=== PATIENT | female | born 1950 | race Caucasian/White ===

== ENCOUNTER 2017-05-25 10:16 | Day surgery (SDC) | payer BC, OTHER ==
[2017-05-22 13:45] LABS: Absolute Lymphocytes (CBC) 2.1 K/uL (0.7-4.9); Absolute Monocytes 0.5 K/uL (0.1-1.3); Absolute Neutrophil 5.1 K/uL (1.8-8.0); Basophils % 0.4 % (0-1.3); Eosinophils % 1.3 % (0-4.4); Hematocrit 37.6 % (36.0-45.0); Lymphocytes % 26.5 % (15.3-44.8); MCH 30.2 pg (27.0-35.0); MPV 9.1 fL (7.6-11.3); RBC Red Blood Cell Count 4.23 M/uL (3.86-4.86)
[2017-05-22 13:48] LABS: Protime INR 0.96
[2017-05-22 13:59] LABS: Urine Appearance CLEAR; Urine Bilirubin NEGATIVE (NEG); Urine Blood NEGATIVE (NEG); Urine Color YELLOW; Urine Glucose NEGATIVE (NEG); Urine Microscopic Reflex NO UMIC; Urine Protein NEGATIVE (NEG); Urine Specific Gravity 1.015 (1.005-1.030); Urine Urobilinogen 0.2 mg/dL (0.2-1.0); Urine pH 7.5 (5.0-7.0)
[2017-05-22 14:16] LABS: BUN Blood Urea Nitrogen 10 mg/dL (6-20); Bicarbonate 31 mEq/L (21-31); Glucose Level 88 mg/dL (65-120); Potassium 4.1 mEq/L (3.6-5.0); Sodium Level 136 mEq/L (135-145)
[2017-05-25] MEDS ORDERED: PHENAZOPYRIDINE 100MG TAB PO ONE (10:30)
[2017-05-25] MEDS ORDERED: Ringers Lactate 1,000 ML IV ONE ×2 (10:46→14:14)
[2017-05-25] MEDS ORDERED: CEFAZOLIN/SWI 1gm 1 GM/10 ML SYR ONE ×2 (10:46→11:38)
[2017-05-25] MEDS ORDERED: NA CHLORIDE 0.9% 100 ML IV ONE (11:38)
[2017-05-25] MEDS ORDERED: VASOPRESSIN 20 UNIT/ML VIAL ONE (11:38)
[2017-05-25] MEDS ORDERED: ROCURONIUM 50 MG/5 ML VIAL IV ONE ×2 (12:10→14:45)
[2017-05-25] MEDS ORDERED: ONDANSETRON 4 MG/2 ML VIAL ONE (12:10)
[2017-05-25] MEDS ORDERED: PROPOFOL 200 MG/20 ML VIAL IV ONE (12:10)
[2017-05-25] MEDS ORDERED: MIDAZOLAM HCL 2 MG/2 ML INJ ONE (12:10)
[2017-05-25] MEDS ORDERED: LIDOCAINE 2% MPF 5 ML VIAL ONE (12:10)
[2017-05-25] MEDS ORDERED: FENTANYL CITR 250 MCG/5 ML ONE (12:10)
[2017-05-25] MEDS ORDERED: DEXAMETHASONE 10 MG/ML VIAL ONE (12:55)
[2017-05-25] MEDS ORDERED: GLYCOPYRROLATE 0.2 MG/ML SYR ONE (15:22)
[2017-05-25] MEDS ORDERED: NEOSTIGMINE 1 MG/ML -5 ML SYRINGE ONE (15:22)
[2017-05-25] MEDS ORDERED: Morphine 2 MG/2 ML SYR IV PRN (15:37)
[2017-05-25] MEDS ORDERED: ACETAMINOPHEN 500 MG TAB PO PRN (15:37)
[2017-05-25] MEDS ORDERED: PROMETHAZINE 25 MG/ML VIAL IV PRN (15:37)
[2017-05-25] MEDS ORDERED: ONDANSETRON 4 MG/2 ML VIAL IV PRN (15:37)
--- NOTE | 2017-05-25 15:47 | P.BOP ---
Preoperative diagnosis: cystocele,vault prolapse,rectocele, CANDELARIA Postoperative diagnosis: cystocele,vault prolapse,rectocele, CANDELARIA Primary procedure: cystocele repair with uphold, apical enterocele repair, trupti SSLF colpopexy Secondary procedure: rectocele repair and perineorrhaphy Other procedure(s): TVT-O cystoscopy [employer] Driver: Alfreda Arcos Estimated blood loss: 150 Specimen: none Findings: 0/+2/+2/3/thin/6/-2/-2/n/a Anesthesia: General Complications: None Drain(s): Urinary catheter Implants: uphold, TVT-O Transferred to: Recovery Room Condition: Good
[2017-05-25] MEDS ORDERED: Ringers Lactate 1,000 ML IV SCH (16:00)
[2017-05-25] MEDS ORDERED: ALBUTEROL INHALER 60 PUFF/8 GM IH PRN (17:15)
[2017-05-25] MEDS ORDERED: cloNIDine HCl 0.1 MG TAB PO SCH (17:30)
[2017-05-25] MEDS ORDERED: HYDROCODONE/APAP 5/325 MG TAB PO PRN ×2 (21:12→21:13)
[2017-05-26] MEDS ORDERED: LEVOTHYROXINE SOD 0.05 MG TABLET PO SCH (06:00)
[2017-05-26] MEDS ORDERED: LOSARTAN POTASSIUM 50 MG TABLET PO SCH (06:00)
[2017-05-26] MEDS ORDERED: HOME MED 1 EA UNK (Losartan Potassium [Cozaar] 100 MG) PO SCH (06:00)
[2017-05-26 06:32] LABS: Absolute Monocytes 0.9 K/uL (0.1-1.3); Absolute Neutrophil 7.7 K/uL (1.8-8.0); Basophils % 0.4 % (0-1.3); Eosinophils % 0.2 % (0-4.4); Hematocrit 33.1 % (36.0-45.0); Lymphocytes % 18.4 % (15.3-44.8); MCH 29.5 pg (27.0-35.0); MCV 89.8 fL (80-100); MPV 9.1 fL (7.6-11.3); Monocytes % 8.4 % (3.3-12.3); RBC Red Blood Cell Count 3.68 M/uL (3.86-4.86)
[2017-05-26] MEDS ORDERED: HOME MED 1 EA UNK (Fluticasone/Salmeterol [Advair 250/50 Diskus*] 1 PUFF) IH SCH (09:00)
[2017-05-26] MEDS ORDERED: MONTELUKAST 10 MG TAB PO SCH (09:00)
--- NOTE | 2017-05-26 17:15 | OP ---
Date of Procedure: 05/25/2017 Surgeon: Carmenza Dykes MD Director Of Teaching And Learning: Alfreda Arcos. Preoperative Diagnoses: Vaginal vault prolapse, cystocele, rectocele, stress incontinence, possible posterior enterocele and apical perineal defect and possible rectocele. 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 2.Apical enterocele. 3.Anterior wall defect (cystocele). 4.Distal rectocele. 5.Perineocele. 6.Stress urinary incontinence. Anesthesia: General endotracheal. Specimens: No specimens. Complications: No complications. Drains: Espinoza catheter. Vaginal packing. Condition: The patient's condition is stable. Ebl: 200. Indications: The patient is a 67-year-old with a prior history of anterior wall repair in 2001, recu rrent prolapse that is symptomatic, declined pessary management. After discussing alternatives of ab dominal and vaginal surgeries, proceeded with consenting for vaginal surgery, involving the defect re pairs as follows. Description Of Procedure: After informed consent was verified, 1 g of Ancef was given. The patient was taken back to the OR. SCDs were placed after she was placed in a supine fashion on the operating table. General anesthesia was given. The patient placed in a dorsal lithotomy position. Pelvic ex am was performed and POP-Q as follows 0, +2, +2, genital hiatus 4 cm. Perineal body was think and to chichi vaginal length 5 cm. AP -2 BP -2. Point D not applicable. Lower abdomen, vulva, vagina, and pe rineum were prepped and draped in a sterile fashion. Espinoza was placed to drain the bladder and retra cted superiorly. She got Pyridium preop. The vaginal vault was marked with two 3-0 Vicryl sutures. The anterior wall appeared to be stratifie d because of the chronic external exposure likely. The midline was held with 2 Allis clamps right be low the level of the bladder neck to the level just above the vaginal apex, and there was a suspicion of an apical enterocele and anterior enterocele. So, I plan to do this defect repair along with the cystocele repair. Dilute vasopressin 20 units mixed with 50 cc of normal saline, 20 cc was injected here in the anterio r wall into the vesicovaginal space based on the depth of the needle. After this was injected, 1 cm incision was made in the middle with a scalpel 15-blade. Incision extended after entering the approp riate plane superiorly and inferiorly. Then, the dissection was carried to separate the bladder supe riorly from the flaps and then the enterocele was very evident here, and at the apex the enterocele w as also dissected and completely taken down, slightly even past the level of the vaginal cuff because it extended both in the anterior posterior compartments from the apex. The lateral cantu were also dissected and once the paravaginal sulcus was reached, the paravesical space was entered with the tip s of the scissors and open space, and the space opened up. Dissection was carried towards the ischia l spines and sacrospinous ligament was cleaned up on the right and same dissection performed on the l eft. A 3-0 Vicryl suture was taken and apical enterocele was closed down with the help of 2 pursestr ing sutures. In the vesicovaginal space reduction of this was done as well with the help of 1 purses tring 3-0 Vicryl suture. Once this was all reduced down, the length of the anterior wall for short a bout 3.5 cm from the bladder neck to the apex. The scissors went slightly past the apex in the disse ction to the enterocele repair 5 cm of the graft would fit, so I pulled this opened. The arms were p laced into the sacrospinous ligament about 2 cm medial and posterior to the ischial spine on each cheryle e without any problems. Then the graft was attached in the midline and on both sides at the proximal end with the help of 2-0 PDS sutures in interrupted fashion x3. Then, the graft was slightly adjust ed to come down at the apex so the loose graft was flattened out. Then, the vaginal closure was star kali at the apex. Two sutures were placed to bring the lateral tissues together on top of the apex, a pical part of the mesh. Then, the vaginal epithelium was closed with the help of a 2-0 Vicryl suture in a horizontal mattress fashion, about 1 cm was closed. Then this was set aside. The distal part of the graft was secured under the bladder neck, very close to it with the help of 3-0 PDS sutures an d 3-0 Monocryl sutures x3, 1 in the center, 2 on each side to lay completely flat. Once this was don e, there was no excess graft here that was loose, so the graft was tensioned appropriately without cr eating a tense band. The rest of the incision was closed with the help of an Allis clamp and left in its place, so that there is no displacement since it was going to be repaired in the posterior richard rtment. The arms were also left in place after being tensioned fully, then went down posteriorly. Dilute vasopressin was injected in the perineum in the perineocele area and in the posterior wall, mi dline. There was a dense scar in the lowest 1 cm of the posterior wall most likely from prior repair . On rectovaginal exam, there was 1 area that was really adherent to the wall of the bowel. After t his area was noted, a triangular skin incision was made on the perineum. Skin removed. The posterio r compartment entered. This was dissected and the perineocele was evident below the level of the hym en. The wall here was very thin. This defect appeared to be proximal to the level of the sphincter. The rectocele was dissected in the lowest portion. Then, once I went past the scar here, I was abl e to get the lateral cantu dissected, and they were pulled together with a simple 2-0 Vicryl stitch x 2 with the finger in the rectum and the vagina. The transversus perinei were brought together with t hree 2-0 Vicryl sutures. All these were held on clamps as the glove was changed, they were all tied down. There was excellent reconstruction of the perineum. There was no trimming of the vaginal epit helium and the posterior wall once the defect was repaired. The defect was fully closed with the hel p of a running 3-0 Vicryl suture. Then on the perineum, it was taken down in a subcutaneous fashion and then brought up subcuticular fashion and tied at the level of the hymen. Rectal exam was performed. No evidence of any injury or foreign body. Midurethral sling was placed after making a 1 cm midline incision on the midurethra after injecting d ilute vasopressin. Dissection carried at 45-degree angle to the vertical and horizontal planes towar ds the ipsilateral shoulder under the inferior pubic ramus. The tracks were created on both sides. The TVT-O was opened. The wing guide was placed. The spikes passed in the usual fashion, exited at the points marked for exit on both sides without any problems, sling tension sleeves pulled. Tension was done with the Millie under the sling and in between the urethra. The incision was closed with the help of 3-0 Vicryl in a continuous running locked fashion. Espinoza removed. Cystoscopy was performed strong jets of urine from both the ureteral orifices was seen. No evidence of any trauma or foreign body to the bladder. The area above the trigone had a slight mound likely from the reduction of the enterocele and also because of placing the stitch in the vesicovaginal space to reduce the bulge, wh ich resolved. The entire bladder was fully examined. Urethra was examined as well on the way up. B ladder drained. Espinoza catheter was replaced, packing placed. Skin incision was closed with Dermabon d. Instrument, needle, and sponge counts x3 were correct at the end of the case. The patient tolera kali the procedure while she was recovered from anesthesia and taken to PACU in stable condition. SOY/EDSON Voice ID: [id number] Report ID: [id number]
== END 2017-05-26 10:20 | disposition home or self-care (01) ==
LOC: OR 10:16 → 2ND-WC 16:19 → OR 05-26 10:20
PROVIDERS: ATTEND Obstetrics & Gynecology
PROC: 0JUC0JZ Supplement of Pelvic Region Subcutaneous Tissue and Fascia with Synthetic Substitute, Open Approach (ICD-10-PCS; 2017-05-25)
PROC: 0JQC0ZZ Repair Pelvic Region Subcutaneous Tissue and Fascia, Open Approach (ICD-10-PCS; 2017-05-25)
PROC: 0WQNXZZ Repair Female Perineum, External Approach (ICD-10-PCS; 2017-05-25)
PROC: 0USG7ZZ Reposition Vagina, Via Natural or Artificial Opening (ICD-10-PCS; 2017-05-25)
PROC: 0TSD0ZZ Reposition Urethra, Open Approach (ICD-10-PCS; 2017-05-25)
PROC: 0UQF0ZZ Repair Cul-de-sac, Open Approach (ICD-10-PCS; principal; 2017-05-25 11:30)
DX: N99.3 Prolapse of vaginal vault after hysterectomy (principal); N39.3 Stress incontinence (female) (male); I10 Essential (primary) hypertension; J45.40 Moderate persistent asthma, uncomplicated; E03.9 Hypothyroidism, unspecified; M06.9 Rheumatoid arthritis, unspecified; M85.80 Other specified disorders of bone density and structure, unspecified site; Z90.49 Acquired absence of other specified parts of digestive tract; Z80.8 Family history of malignant neoplasm of other organs or systems; Z82.49 Family history of ischemic heart disease and other diseases of the circulatory system
CPT/HCPCS: 36415; 80048; 81003; 85025; 85610; 85730; 86850; 86900; 86901; J0690; J1100; J2250; J2405; J2710

== ENCOUNTER 2022-04-05 08:37 | Observation (INO) | payer OTHER ==
[2022-04-05 09:16] LABS: Absolute Lymphocytes (CBC) 0.8 K/uL (0.7-4.9); Hematocrit 26.2 % (36.0-45.0); MCV 89.4 fL (80-100); MPV 7.3 fL (7.6-11.3); RBC Red Blood Cell Count 2.93 M/uL (3.86-4.86)
[2022-04-05 09:20] LABS: Protime INR 1.04
--- OUTSIDE RECORDS SUMMARY | 2022-04-05 09:39 | XMS REPORT | Continuity of Care Document ---
:1950 Author Organization [facility] t Address [address] [place] [address] [place] [id number] Care Team Providers Name Role Phone PAPA BUCKLEY Primary Care Physician Unavailable Eduardo Handy MD Attending Clinician EDUARDO HANDY Attending Clinician Unavailable Doctor Unassigned, [place] Attending Clinician Unavailable EDUARDO HANDY Admitting Clinician Unavailable Eduardo Handy MD Admitting Clinician Payers Payer Name Policy Type Policy Number Effective Date Expiration Date S ource Problems Condition Condition Condition Status Onset Resolution Last Treating Co mments Source Name Details Category Date Date Treatment Clinician Date Acute Acute Disease Active 2017-02 Univers bacterial bacterial 03-06 ity of bronchitis bronchitis 00:00: [place] [facility] UTI due to UTI due to Disease Active 2017-02 U johanna Klebsiella Klebsiella 03-06 it y of species species 00:00: [address] SIRS SIRS Disease Active 2017-02 Univers (systemic (systemic 1-27 [place] inflammato inflammato [place] Medical response response Branch syndrome) syndrome) Hypothyroi Hypothyroi Disease Active 2014-02 U johanna d d 2-30 ity of 00:00: [address] Essential Essential Disease Active 2014-02 Uni vers hypertensi hypertensi 0-05 it y of on on 00:00: [address] Allergic Allergic Disease Active 2014-02 Unive rs rhinitis rhinitis 0-05 ity of due to due to 00:00: [place] pollen pollen 00 Medical Branch 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 0-05 it y of asthma asthma 00:00: [place] without without 00 Medical complicati complicati Br anch on on Allergies, Adverse Reactions, Alerts Allergy Allergy Status Severity Reaction(s) Onset Inactive Treating Comm ents Source Name Type Date Date Clinician Codeine Propensi Active Nausea 2014-02 Univers ty to and/or 0-05 ity of adverse Vomiting 00:00: [place] reaction 00 Medical s to Branch drug CODEINE DRUG Active N/V 2014-02 Univers INGREDI 0-05 ity of 00:00: [place] 00 [facility] Branch Social History Social Habit Start Date Stop Date Quantity Comments Source Exposure to 2021-05-21 2021-05-31 Not sure [facility] SARS-CoV-2 (event) 00:00:00 11:06:00 [facility] Alcohol intake 2021-05-31 2021-05-31 .14 /d [facility] 00:00:00 00:00:00 [facility] Tobacco use and 2014-11-10 2014-11-10 Never used [facility] exposure 00:00:00 00:00:00 [facility] Sex [birth year] [facility] 00:00:00 00:00:00 [facility] Smoking Status Start Date Stop Date Source Never smoker [facility] Medications Ordered Filled Start Stop Current Ordering Indication Dosage Frequency Signature Comments Components Source Medication Medication Date Date Medication? Clinician (SIG) Name Name water for Yes PRN, Univers irrigation 06-02 Starting ity o f irrigation 18:50: on Wed [place] solution 00 06/02/21 at Medic al 1350, Branch Until Discontinu ed, Routine, Intra-op simethicone Yes PRN, Univer s (GAS RELIEF 06-02 Starting ity of (SIMETHICON 18:50: on Mon [place] E)) 40 00 06/02/21 at Medical mg/0.6 mL 1350, Branch drops Until Discontinu ed, Routine, Intra-op water for 2021- No PRN, Univers irrigation 06-02 Starting ity of irrigation 18:50: 22:17 on Wed [place] solution 00 :33 06/02/21 at Medic al 1350, Branch Until Mon06/02/21 at 1717, Routine, Intra-op simethicone 2021- No PRN, [facility] rs (GAS RELIEF 06-02 Starting ity of (SIMETHICON 18:50: 22:17 on Mon Luis as E)) 40 00 :33 06/02/21 at Medical mg/0.6 mL 1350, Branch drops Until Mon06/02/21 at 1717, Routine, Intra-op lactated 2021- No 1000mL at 42 [facility] rs ringers IV 06-02-27 mL/hr, ity of infusion 18:00: 18:23 1,000 mL, Luis as 1,000 mL 00 :00 IV Medical Infusion, Branch ONCE, 1 dose, On Mon06/02/21 at 1300, Routine, DSU Pre-op lactated 2021- No 1000mL at 42 [facility] ringers IV 06-02- mL/hr, ity of infusion 18:00: 18:23 1,000 mL, Luis as 1,000 mL 00 :00 IV Medical Infusion, Branch ONCE, 1 dose, On Mon06/02/21 at 1300, Routine, DSU Pre-op Fluticasone Yes 1{puff} Inhale 1 Univers -Salmeterol 4-27 Puff every it y of (ADVAIR 15:17: 12 [place] DISKUS) 30 (twelve) Medical 100-50 hours. Branch mcg/dose inhalation disk Fluticasone Yes 1{puff} Inhale 1 Univers -Salmeterol 4-27 Puff every it y of (WIXELA 15:17: 12 [place] INHUB) 30 (twelve) Medical 100-50 hours. Branch mcg/dose inhalation disk Ferrous Yes 1{tbl} Take 1 Univer s Fumarate 4-27 tablet by ity of (FERROCITE) 15:17: mouth [place] 324 mg (106 30 daily. Medica l mg iron) Branch Tab Fluticasone Yes 1{puff} Inhale 1 Univers -Salmeterol 4-27 Puff every it y of (ADVAIR 15:17: 12 [place] DISKUS) 30 (twelve) Medical 100-50 hours. Branch mcg/dose inhalation disk Fluticasone Yes 1{puff} Inhale 1 Univers -Salmeterol 4-27 Puff every it y of (WIXELA 15:17: 12 [place] INHUB) 30 (twelve) Medical 100-50 hours. Branch mcg/dose inhalation disk Ferrous Yes 1{tbl} Take 1 Univer s Fumarate 4-27 tablet by ity of (FERROCITE) 15:17: mouth [place] 324 mg (106 30 daily. Medica l mg iron) Branch Tab Fluticasone Yes 1{puff} Inhale 1 Univers -Salmeterol 4-27 Puff every it y of (ADVAIR 15:17: 12 [place] DISKUS) 30 (twelve) Medical 100-50 hours. Branch mcg/dose inhalation disk Fluticasone Yes 1{puff} Inhale 1 Univers -Salmeterol 4-27 Puff every it y of (WIXELA 15:17: 12 [place] INHUB) 30 (twelve) Medical 100-50 hours. Branch mcg/dose inhalation disk Ferrous Yes 1{tbl} Take 1 Univer s Fumarate 4-27 tablet by ity of (FERROCITE) 15:17: mouth [place] 324 mg (106 30 daily. Medica l mg iron) Branch Tab Fluticasone 0 Yes 1{puff} Inhale 1 Univers -Salmeterol 7-03 Puff every it y of (ADVAIR 13:08: 12 [place] DISKUS) 25 (twelve) Medical 100-50 hours. Branch mcg/dose inhalation disk albuterol-i 2017-02 Yes 1{puff} Inhale 1 Univers pratropium 1-29 Puff 4 ity of 20-100 00:00: (four) [place] mcg/actuati 00 times Medical on inhaler daily. Branch albuterol-i 2017-02 Yes 1{puff} Inhale 1 Univers pratropium 1-29 Puff 4 ity of 20-100 00:00: (four) [place] mcg/actuati 00 times Medical on inhaler daily. Branch albuterol-i 2017-02 Yes 1{puff} Inhale 1 Univers pratropium 1-29 Puff 4 ity of 20-100 00:00: (four) [place] mcg/actuati 00 times Medical on inhaler daily. Branch albuterol-i 2017- Yes 1{puff} Inhale 1 Univers pratropium 1-29 Puff 4 ity of 20-100 00:00: (four) [place] mcg/actuati 00 times Medical on inhaler daily. Branch benzonatate Yes [id number] 100mg Take 1 Univers (TESSALON 9-10 capsule by ity of PERLES) 100 00:00: mouth 3 [place] as mg capsule 00 (three) Medica l times Branch daily. benzonatate Yes [id number] 100mg Take 1 Univers (TESSALON 9-10 capsule by ity of PERLCloudacc) 100 00:00: mouth 3 [place] as mg capsule 00 (three) Medica l times Branch daily. benzonatate Yes [id number] 100mg Take 1 Univers (TESSALON 9-10 capsule by ity of PERLCloudacc) 100 00:00: mouth 3 [place] as mg capsule 00 (three) Medica l times Branch daily. benzonatate Yes [id number] 100mg Take 1 Univers (TESSALON 9-10 capsule by ity of PERLCloudacc) 100 00:00: mouth 3 [place] as mg capsule 00 (three) Medica l times Branch daily. albuterol Yes [id number] 2{puff} Inhale 2 Univers 90 9-08 Puffs ity of mcg/actuati 00:00: every 6 [place] on inhaler 00 (six) Medical hours as Branch needed for Wheezing. albuterol Yes [id number] 2{puff} Inhale 2 Univers 90 9-08 Puffs ity of mcg/actuati 00:00: every 6 [place] on inhaler 00 (six) Medical hours as Branch needed for Wheezing. albuterol Yes [id number] 2{puff} Inhale 2 Univers 90 9-08 Puffs ity of mcg/actuati 00:00: every 6 [place] on inhaler 00 (six) Medical hours as Branch needed for Wheezing. albuterol Yes [id number] 2{puff} Inhale 2 Univers 90 9-08 Puffs ity of mcg/actuati 00:00: every 6 [place] on inhaler 00 (six) Medical hours as Branch needed for Wheezing. losartan Yes [id number] 100mg Take 1 Un griselda 100 mg 8-25 tablet by ity of tablet 00:00: mouth [place] 00 daily. Medical Branch montelukast Yes [id number] 10mg Take 1 Univers 10 mg 8-25 tablet by ity of tablet 00:00: mouth [place] 00 daily. Medical Branch cloniDINE Yes [id number] .1mg Take 1 Un griselda 0.1 mg 8-25 tablet by ity of tablet 00:00: mouth [place] 00 daily. Medical Branch azelastine Yes [id number] 1{spray Use 1 Univers 137 mcg 8-25 } [place] in ity of (0.1 %) 00:00: each [place] nasal spray 00 nostril 2 Med ical (two) Branch times daily. Use in each nostril as directed fluticasone Yes 2 SPRAYS Un griselda 50 8-25 INTRANASAL ity of mcg/actuati 00:00: [place] DA[place] nasal 00 IN EACH Medical spray NOSTRIL Branch levothyroxi Yes [id number] 25ug Take 1 Univers ne 25 mcg 8-25 tablet by ity o f tablet 00:00: mouth [place] 00 every Medical morning. Branch losartan Yes [id number] 100mg Take 1 Un griselda 100 mg 8-25 tablet by ity of tablet 00:00: mouth [place] 00 daily. Medical Branch montelukast Yes [id number] 10mg Take 1 Univers 10 mg 8-25 tablet by ity of tablet 00:00: mouth [place] 00 daily. Medical Branch cloniDINE Yes [id number] .1mg Take 1 Un griselda 0.1 mg 8-25 tablet by ity of tablet 00:00: mouth [place] 00 daily. Medical Branch azelastine Yes [id number] 1{spray Use 1 Univers 137 mcg 8-25 } [place] in ity of (0.1 %) 00:00: each [place] nasal spray 00 nostril 2 Med ical (two) Branch times daily. Use in each nostril as directed fluticasone Yes 2 SPRAYS Un griselda 50 8-25 INTRANASAL ity of mcg/actuati 00:00: [place] nasal 00 IN EACH Medical spray NOSTRIL Branch levothyroxi Yes [id number] 25ug Take 1 Univers ne 25 mcg 8-25 tablet by ity o f tablet 00:00: mouth [place] 00 every Medical morning. Branch losartan Yes [id number] 100mg Take 1 Un griselda 100 mg 8-25 tablet by ity of tablet 00:00: mouth [place] 00 daily. Medical Branch montelukast Yes [id number] 10mg Take 1 Univers 10 mg 8-25 tablet by ity of tablet 00:00: mouth [place] 00 daily. Medical Branch cloniDINE Yes [id number] .1mg Take 1 Un griselda 0.1 mg 8-25 tablet by ity of tablet 00:00: mouth [place] 00 daily. Medical Branch azelastine Yes [id number] 1{spray Use 1 Univers 137 mcg 8-25 } [place] in ity of (0.1 %) 00:00: each [place] nasal spray 00 nostril 2 Med ical (two) Branch times daily. Use in each nostril as directed fluticasone Yes 2 SPRAYS Un griselda 50 8-25 INTRANASAL ity of mcg/actuati 00:00: [place] nasal 00 IN EACH Medical spray NOSTRIL Branch levothyroxi Yes [id number] 25ug Take 1 Univers ne 25 mcg 8-25 tablet by ity o f tablet 00:00: mouth [place] 00 every Medical morning. Branch losartan Yes [id number] 100mg Take 1 Un grisel[place] 100 mg 8-25 tablet by ity of tablet 00:00: mouth [place] 00 daily. Medical Branch montelukast Yes [id number] 10mg Take 1 Univers 10 mg 8-25 tablet by ity of tablet 00:00: mouth [place] 00 daily. Medical Branch cloniDINE Yes [id number] .1mg Take 1 Un griselda 0.1 mg 8-25 tablet by ity of tablet 00:00: mouth [place] 00 daily. Medical Branch azelastine Yes [id number] 1{spray Use 1 Univers 137 mcg 8-25 } [place] in ity of (0.1 %) 00:00: each [place] nasal spray 00 nostril 2 Med ical (two) Branch times daily. Use in each nostril as directed fluticasone Yes 2 SPRAYS Un griselda 50 8-25 INTRANASAL ity of mcg/actuati 00:00: [place] nasal 00 IN EACH Medical spray NOSTRIL [place] levothyroxi 2017-0 Yes [id number] 25ug Take 1 Univers ne 25 mcg 8-25 tablet by ity o f tablet 00:00: mouth [place] 00 every Medical morning. Branch levocetiriz 2015-02 Yes [id number] 5mg Take 1 Univers ine (XYZAL) 1-08 tablet by ity of 5 mg tablet 00:00: mouth [place] 00 every Medical evening. Branch levocetiriz 2015-02 Yes [id number] 5mg Take 1 Univers ine (XYZAL) 1-08 tablet by ity of 5 mg tablet 00:00: mouth [place] 00 every Medical evening. Branch levocetiriz 2015-02 Yes [id number] 5mg Take 1 Univers ine (XYZAL) 1-08 tablet by ity of 5 mg tablet 00:00: mouth [place] 00 every Medical evening. [place] levocetiriz 2015-02 Yes [id number] 5mg Take 1 Univers ine (XYZAL) 1-08 tablet by ity of 5 mg tablet 00:00: mouth [place] 00 every Medical evening. [place] Immunizations Ordered Filled Immunization Date Status Comments [facility] e Immunization Name Name SARS-COV-2 COVID-19 2021-05-19 Completed Unive rsity of MODERNA VACCINE 00:00:00 [facility] SARS-COV-2 COVID-19 2021-05-19 Completed Unive rsity of MODERNA VACCINE 00:00:00 [facility] SARS-COV-2 COVID-19 2021-05-19 Completed Unive rsity of MODERNA VACCINE 00:00:00 [facility] SARS-COV-2 COVID-19 2021-01-08 Completed Unive rsity of MODERNA VACCINE 00:00:00 [facility] SARS-COV-2 COVID-19 2021-01-08 Completed Unive rsity of MODERNA VACCINE 00:00:00 [facility] SARS-COV-2 COVID-19 2021-01-08 Completed Unive rsity of MODERNA VACCINE 00:00:00 [facility] SARS-COV-2 COVID-19 2020-05-19 Completed Unive rsity of MODERNA VACCINE 00:00:00 [facility] SARS-COV-2 COVID-19 2020-05-19 Completed Unive rsity of MODERNA VACCINE 00:00:00 [facility] SARS-COV-2 COVID-19 2020-05-19 Completed Unive rsity of MODERNA VACCINE 00:00:00 [facility] SARS-COV-2 COVID-19 2020-04-22 Completed Unive rsity of MODERNA VACCINE 00:00:00 [facility] SARS-COV-2 COVID-19 2020-04-22 Completed Unive rsity of MODERNA VACCINE 00:00:00 [facility] SARS-COV-2 COVID-19 2020-04-22 Completed Unive rsity of MODERNA VACCINE 00:00:00 [facility] Influenza Virus 2014-12-05 Completed Universit y of Vaccine 00:00:00 [facility] Influenza Virus 2014-12-05 Completed Universit y of Vaccine 00:00:00 [facility] Influenza Virus 2014-12-05 Completed Universit y of Vaccine 00:00:00 [facility] Influenza Virus 2014-12-05 Completed Universit y of Vaccine 00:00:00 [facility] Zoster(Zostavax)( 2014-07-26 Completed Unive rsity of ingles) 00:00:00 [facility] Zoster(Zostavax)( 2014-07-26 Completed Unive rsity of ingles) 00:00:00 [facility] Zoster(Zostavax)( 2014-07-26 Completed Unive rsity of ingles) 00:00:00 [facility] Zoster(Zostavax)( 2014-07-26 Completed Unive rsity of ingles) 00:00:00 [facility] Pneumococcal 2010-10-07 Completed University o f Polysaccharide, 00:00:00 [facility] ical PPSV23 (PNEUMOVAX) Branch Pneumococcal 2010-10-07 Completed University o f Polysaccharide, 00:00:00 [facility] ical PPSV23 (PNEUMOVAX) Branch Pneumococcal 2010-10-07 Completed University o f Polysaccharide, 00:00:00 [facility] ical PPSV23 (PNEUMOVAX) Branch Pneumococcal 2010-10-07 Completed University o f Polysaccharide, 00:00:00 [facility] ical PPSV23 (PNEUMOVAX) Branch Vital Signs Vital Name Observation Time Observation Value Comments Source Heart rate 2021-06-02 19:50:00 80 /min Universi ty of [place] [facility] Respiratory rate 2021-06-02 19:50:00 20 /min Univ ersity of [place] [facility] Oxygen saturation in 2021-06-02 19:50:00 100 /min University of Arterial blood by [facility] Pulse oximetry Branch Systolic blood 2021-06-02 19:45:00 136 mm[Hg] Univer sity of pressure [facility] Diastolic blood 2021-06-02 19:45:00 70 mm[Hg] Unive rsity of [facility] Body temperature 2021-06-02 19:32:00 36.11 Sandra [facility] ersity of [facility] Body height 2021-05-28 18:05:00 162.6 cm Universi ty of [place] [facility] Body weight 2021-05-28 18:05:00 50.8 kg Universi ty of [facility] BMI 2021-05-28 18:05:00 19.21 kg/m2 Universi ty of [facility] Heart rate 2021-06-02 19:50:00 80 /min Universi ty of [facility] Respiratory rate 2021-06-02 19:50:00 20 /min Univ ersity of [facility] Oxygen saturation in 2021-06-02 19:50:00 100 /min University of Arterial blood by [facility] Pulse oximetry Branch Systolic blood 2021-06-02 19:45:00 136 mm[Hg] Univer sity of [facility] Diastolic blood 2021-06-02 19:45:00 70 mm[Hg] Unive rsity of [facility] Body temperature 2021-06-02 19:32:00 36.11 Sandra Univ ersity of [place] [facility] Body height 2021-05-28 18:05:00 162.6 cm Universi ty of [place] [facility] Body weight 2021-05-28 18:05:00 50.8 kg Universi ty of [place] [facility] BMI 2021-05-28 18:05:00 19.21 kg/m2 Universi ty of [place] [facility] Procedures Procedure Date / Time Performing Clinician Source Performed ESOPHAGOGASTRODUODENOSCOPY 2021-06-02 18:49:00 Garrett Handy [facility] COLONOSCOPY 2021-06-02 18:49:00 [facility] COLONOSCOPY (ENDO) 2021-06-02 12:21:46 Papa Buckley [facility] COLONOSCOPY (ENDO) 2021-06-02 12:21:46 Papa Buckley [facility] EGD (ENDO) 2021-06-02 12:20:53 Papa Buckley [facility] EGD (ENDO) 2021-06-02 12:20:53 Papa Buckley [place] [facility] DAY SURGERY - ADC 2021-06-02 05:01:00 Doctor uFnes [facility] [place] [facility] EXTERNAL PROVIDER RECORDS 2021-05-28 05:01:00 Doctor Shantel, [facility] Name [facility] Encounters Start End Encounter Admission Attending Care Care Encounter Source Date/Time Date/Time Type Type Clinicians Facility Department ID 2021-06-02 2021-06-02 Surgery [facility] [id number] Univers 14:41:00 15:37:00 Eduardo salazar [id number] ity [id number] [id number] [facility] 020 Branch 2021-06-02 2021-06-02 Outpatient R [facility] BREANNE [id number] Univers 12:45:00 15:05:00 EDUARDO Salazar o f [facility] 2021-06-02 2021-06-02 [facility] [id number] Univers 12:45:00 15:05:00 Encounter Eduardo salazar [id number] ity [id number] SUR[place] [id number] [facility] 071 Branch 2021-06-02 2021-06-02 Orders Doctor [place] [id number] Univers 00:00:00 00:00:00 Only UnassYASMIN matthews [id number] [facility] [id number] [place] [id number] [place] [address] Branch 2021-05-28 2021-05-28 Orders Doctor MANDIE [id number] [facility] 00:00:00 00:00:00 Only Unassigned, YASMIN [id number] ity of [place] [facility] [id number] [place] as [id number] [place] [address] Branch Results This patient has no known results.
[2022-04-05 09:40] LABS: ALT/SGPT 29 U/L (13-56); AST/SGOT 27 U/L (15-37); Albumin 3.1 g/dL (3.4-5.0); Alkaline Phosphatase 66 U/L (45-117); BUN Blood Urea Nitrogen 15 mg/dL (7-18); Bicarbonate 28 mmol/L (21-32); Glomerular Filtration Rate 99 ml/min (=/>90); Glucose Level 100 mg/dL (74-106); NT PRO-BNP 473 pg/mL (<125); Potassium 3.9 mmol/L (3.5-5.1); Protein, Total 6.2 g/dL (6.4-8.2); Sodium Level 134 mmol/L (136-145); Troponin High Sensitivity 5.5 pg/mL (<58.9)
[2022-04-05 09:42] LABS: Bilirubin Direct < 0.1 mg/dL (0-0.2); Bilirubin Total < 0.1 mg/dL (0.2-1.0)
[2022-04-05] MEDS ORDERED: FUROSEMIDE 20 MG/ 2ML VIAL ONE (10:52)
[2022-04-05] MEDS ORDERED: VANCOMYCIN 1 GM/VIAL ONE (10:52)
[2022-04-05] MEDS ORDERED: PIPERACIL/TAZO 3.375 GM VIAL IV ONE (10:53)
[2022-04-05] MEDS ORDERED: NA CHLORIDE 0.9% 250 ML ONE (10:53)
[2022-04-05] MEDS ORDERED: NA CHLORIDE 0.9% 100 ML ONE (10:53)
--- NOTE | 2022-04-05 11:25 | RAD REPORT ---
EXAM DESCRIPTION: US - Extrem Venous W Compress Shaun - 04/05/2022 10:41 am CLINICAL HISTORY: Swelling COMPARISON: None. TECHNIQUE: Real-time sonographic evaluation of the bilateral lower extremity deep venous systems was performed. FINDINGS: Normal compressibility, flow augmentation, phasic flow and spontaneous flow is identified in both the left and right lower extremity deep venous systems. No intraluminal filling defects seen. Mild subcutaneous edema along the lower leg. IMPRESSION: No DVT in either lower extremity.
--- NOTE | 2022-04-05 12:10 | RAD REPORT ---
EXAM DESCRIPTION: Dariusz Single View04/05/2022 10:57 am CLINICAL HISTORY: DYSPNEA COMPARISON: No comparisons TECHNIQUE: Portable AP view of the chest. FINDINGS: The lungs are clear.Hyperlucency and hyperinflation, may reflect sequelae of COPD. No pneu mothorax or effusion. The cardiomediastinal contours are unremarkable. IMPRESSION: No acute cardiopulmonary process. Suspect sequelae of COPD.
--- NOTE | 2022-04-05 12:42 | EDPHYS ---
Physician Documentation [facility] Name: Cha Bhakta Age: 72 yrs Sex: Female : 1950 Arrival Date: 04/05/2022 Time: 08:44 Bed 13 Private MD: Gilmar Dawson C ED Physician Armen Quiroga HPI: 04/05 09:18 This 72 yrs old Female presents to ER via Ambulatory with complaints of Leg Swelling. sp4 09:18 72 year old female with PMH of . sp4 11:30 Patient presents with worsening bilateral lower extremity swelling and pain with sp4 ambulation for several weeks worse today . Patient states she has no dyspnea, but there is associated redness and swelling of the right lower extremity worse than left. . Historical: - Allergies: 08:54 Codeine; ap3 - Home Meds: 08:54 clonidine HCl 0.1 mg Oral tab [Active]; levothyroxine 25 mcg cap [Active]; ap3 - PMHx: 08:54 Hypothyroidism; Hypertensive disorder; seasonal allergies; ap3 10:30 Anemia; sp4 - Immunization history:: Client reports receiving the 2nd dose of the Covid vaccine, Pneumococcal vaccine is up to date, Flu vaccine is up to date. - Social history:: Smoking status: Patient denies any tobacco usage or history of. ROS: 10:28 Constitutional: Negative for fever, chills, and weight loss, reports bilateral lower sp4 extremity swelling Eyes: Negative for injury, pain, redness, and discharge, ENT: Negative for injury, pain, and discharge, Neck: Negative for injury, pain, and swelling, Cardiovascular: Negative for chest pain, palpitations, and edema, Respiratory: Negative for shortness of breath, cough, wheezing, and pleuritic chest pain, Abdomen/GI: Negative for abdominal pain, nausea, vomiting, diarrhea, and constipation, Back: Negative for injury and pain, : Negative for injury, bleeding, discharge, and swelling, MS/Extremity: Negative for injury and deformity, Bilateral lower extremity swelling and pitting edema, right lower leg redness and pain Skin: Negative for injury, Right lower leg redness Neuro: Negative for headache, weakness, numbness, tingling, and seizure, Psych: Negative for depression, anxiety, suicide ideation, homicidal ideation, and hallucinations, Allergy/Immunology: Negative for hives, rash, and allergies, Endocrine: Negative for neck swelling, polydipsia, polyuria, polyphagia, and marked weight changes, Hematologic/Lymphatic: Negative for swollen nodes, abnormal bleeding, and unusual bruising. Exam: 10:21 Head/Face: Normocephalic, atraumatic. Eyes: Pupils equal round and reactive to light, sp4 extra-ocular motions intact. Lids and lashes normal. Conjunctiva and sclera are non-icteric and not injected. Cornea within normal limits. Periorbital areas with no swelling, redness, or edema. ENT: Nares patent. No nasal discharge, no septal abnormalities noted. Tympanic membranes are normal and external auditory canals are clear. Oropharynx with no redness, swelling, or masses, exudates, or evidence of obstruction, uvula midline. Mucous membranes moist. Neck: Trachea midline, no thyromegaly or masses palpated, and no cervical lymphadenopathy. Supple, full range of motion without nuchal rigidity, or vertebral point tenderness. No Meningismus. Chest/axilla: Normal chest wall appearance and motion. Nontender with no deformity. No lesions are appreciated. Cardiovascular: Regular rate and rhythm with a normal S1 and S2. No gallops, murmurs, or rubs. Normal PMI, no JVD. No pulse deficits. Respiratory: Lungs have equal breath sounds bilaterally, clear to auscultation and percussion. No rales, rhonchi or wheezes noted. No increased work of breathing, no retractions or nasal flaring. Abdomen/GI: Soft, non-tender, with normal bowel sounds. No distension or tympany. No guarding or rebound. No evidence of tenderness throughout. Back: No spinal tenderness. No costovertebral tenderness. Full range of motion. Skin: Warm, dry with normal turgor. Normal color with no rashes, no lesions, and no evidence of cellulitis. MS/ Extremity: Pulses equal, no cyanosis. Neurovascular intact. Full, normal range of motion. Bilateral lower extremity swelling with right lower extremity cellulitic changes Neuro: Awake and alert, GCS 15, oriented to person, place, time, and situation. Cranial nerves II-XII grossly intact. Motor strength 5/5 in all extremities. Sensory grossly intact. Cerebellar exam normal. Normal gait. Psych: Awake, alert, with orientation to person, place and time. Behavior, mood, and affect are within normal limits. 10:21 Constitutional: The patient appears in no acute distress, alert, awake, comfortable, well groomed, Pale , otherwise non toxic 10:21 Head/face: Exam is negative for 10:21 ECG was reviewed by the Attending Physician. 10:21 Musculoskeletal/extremity: Bilateral pitting edema with generalized redness of the right lower extremity . Vital Signs: 08:52 BP 165 / 85; Pulse 114; Resp 18; Temp 98.7; Pulse Ox 100% ; Weight 49.9 kg; Height 5 ap3 ft. 4 in. (162.56 cm); 09:00 BP 167 / 107; Pulse 110; Resp 18; Pulse Ox 100% on R/A; db 10:50 BP 112 / 96; Pulse 101; Resp 18; Pulse Ox 100% on R/A; db 11:17 BP 143 / 99; Pulse 98; Resp 16; Pulse Ox 100% on R/A; db 12:00 BP 150 / 73; Pulse 76; Resp 18; Pulse Ox 100% on R/A; db 13:00 BP 143 / 83; Pulse 101; Resp 18; Pulse Ox 97% on R/A; db 08:52 Body Mass Index 18.88 (49.90 kg, 162.56 cm) ap3 MDM: 09:18 Patient medically screened. sp4 11:17 Differential diagnosis: tendonitis, cellulitis, renal faiure. Data reviewed: vital sp4 signs, nurses notes, diagnostic data from outside facility, old medical records, lab test result(s), cardiac enzymes, CBC, electrolytes, hepatic panel, EKG, radiologic studies, doppler, plain films. Consideration of Admission/Observation Patient was admitted/placed on observation. Management of patient was discussed with the following: Primary Care Provider: Eunice Elam MD. I considered the following discharge prescriptions or medication management in the emergency department Medications were administered in the Emergency Department. See MAR. Independent interpretation of the following test(s) in the Emergency Department EKG: See my EKG interpretation above. Test considered but Not performed: CT: CT chest considered but would not immediately contribute to the ED management . External Records Reviewed: Outpatient record: GI clinic record . Care significantly affected by the following chronic conditions: Hypertension, Anemia . Care significantly affected by the following Social Determinants of Health: Poor access to healthcare and/or lack of insurance, Poor access to transportation. Medication response: Lasix IV for diuresis . Response to treatment: the patient's symptoms have mildly improved after treatment. Awaiting: X-ray results, Ultrasound results. ED course: Mild improvement , overall . 04/05 09:03 Order name: Basic Metabolic Panel [facility] 04/05 09:03 Order name: CBC with Diff [facility] 04/05 09:03 Order name: D-Dimer [facility] 04/05 09:03 Order name: LFT's [facility] 04/05 09:03 Order name: NT PRO-BNP [facility] 04/05 09:03 Order name: PT-INR [facility] 04/05 09:03 Order name: Troponin HS [facility] 04/05 09:03 Order name: XRAY Chest (1 view); Complete Time: 12:43 [facility] 04/05 09:03 Order name: EKG; Complete Time: 09:05 [facility] 04/05 10:20 Interpretation: Normal except: LAE, NO ST elevation or depression . [facility] 04/05 09:03 Order name: Cardiac monitoring; Complete Time: 09:16 [facility] 04/05 09:03 Order name: EKG - Nurse/Tech; Complete Time: 09:16 [facility] 04/05 09:03 Order name: IV Saline Lock; Complete Time: 09:07 [facility] 04/05 09:03 Order name: Labs collected and sent; Complete Time: 09:16 [facility] 04/05 09:03 Order name: O2 Per Protocol; Complete Time: 09:16 [facility] 04/05 09:03 Order name: O2 Sat Monitoring; Complete Time: 09:21 [facility] 04/05 09:04 Order name: Extrem Venous W Compression Shaun US; Complete Time: 11:28 [facility] 04/05 09:20 Order name: Protime (+INR); Complete Time: 10:17 EDMS 04/05 09:27 Order name: CBC with Automated Diff; Complete Time: 10:17 EDKS 04/05 09:35 Order name: D-Dimer; Complete Time: 10:17 EDMS 04/05 09:42 Order name: Basic Metabolic Panel; Complete Time: 10:17 EDMS 04/05 09:42 Order name: Liver (Hepatic) Function; Complete Time: 10:17 EDMS 04/05 09:42 Order name: Troponin High Sensitivity; Complete Time: 10:17 EDMS 04/05 09:42 Order name: NT PRO-BNP; Complete Time: 10:17 EDMS 04/05 10:20 Interpretation: Abnormal. sp4 04/05 10:37 Order name: Blood Culture Adult (2) sp4 04/05 12:55 Order name: SARS-COV-2 Antigen Rapid bd 04/05 13:19 Order name: SARS-COV-2 Antigen Rapid; Complete Time: 13:28 EDMS 04/05 17:53 Order name: Troponin High Sensitivity EDMS EC:21 Rate is 99 beats/min. Rhythm is regular. QRS [place] is Normal. [place] interval is normal. QRS sp4 interval is normal. QT interval is normal. T waves are Normal. No ST changes noted. Clinical impression: Normal ECG. Administered Medications: 11:22 Drug: Lasix (furosemide) 20 mg Route: IVP; Site: left antecubital; db 12:55 Follow up: Response: No adverse reaction db 11:22 Drug: Zosyn (piperacillin-tazobactam) 3.375 grams Route: IVPB; Infused Over: 60 mins; db Site: left antecubital; 12:05 Follow up: Response: No adverse reaction; IV Status: Completed infusion; IV Intake: 50mldb 12:05 Drug: vancoMYCIN 1 grams Route: IVPB; Infused Over: 2 hrs; Site: left antecubital; db 13:45 Follow up: Response: No adverse reaction; IV Status: Completed infusion; IV Intake: db 250ml Disposition: 12:37 Co-signature as Attending Physician, Armen Quiroga MD. sp4 Disposition Summary: 04/05/22 12:42 Hospitalization Ordered Hospitalization Status: Observation sp4 Provider: Gilmar Dawson Condition: Stable sp4 Problem: new sp4 Symptoms: are unchanged sp4 Bed/Room Type: Private sp4 Location: Telemetry/MedSurg (observation)(04/05/22 22:42) cg Room Assignment: [facility](04/05/22 22:44) cg Diagnosis - Acute diastolic (congestive) heart failure sp4 - Cellulitis of right lower limb sp4 - Generalized edema sp4 - Anemia, unspecified sp4 - Renovascular hypertension sp4 Forms: - Medication Reconciliation Form sp4 - SBAR form sp4 Signatures: Dispatcher [employer] [facility] Nadeem Hood MD MD rn Smirch, Shelby RN RN ss Keerthi Posada RN RN cg Linda Bishop RN RN ap3 Ana Bowman RN RN db Armen Quiroga MD MD sp4 Corrections: (The following items were deleted from the chart) 17:55 12:42 Telemetry/MedSurg (observation) sp4 ss 17:55 12:42 sp4 ss 22:42 17:55 [facility] ER HOLD ss cg 22:42 17:55 ERHOLD- ss cg 22:44 22:42 221 cg cg
--- NOTE | 2022-04-05 12:42 | ER ---
Nurse's Notes [facility] Name: Cha Bhakta Age: 72 yrs Sex: Female : 1950 Arrival Date: 04/05/2022 Time: 08:44 Bed 13 Private MD: Gilmar Dawson C Diagnosis: Acute diastolic (congestive) heart failure;Cellulitis of right lower limb;Generalized edema;Anemia, unspecified;Renovascular hypertension Presentation: 04/05 08:52 Chief complaint: Patient states: she started having trupti lower extremity swelling, in ap3 April 2021. However patient states that the swelling has gotten worse in the last month. Coronavirus screen: At this time, the client does not indicate any symptoms associated with coronavirus-19. Ebola Screen: No symptoms or risks identified at this time. Initial Sepsis Screen: Does the patient meet any 2 criteria? No. Patient's initial sepsis screen is negative. Does the patient have a suspected source of infection? No. Patient's initial sepsis screen is negative. Risk Assessment: Do you want to hurt yourself or someone else? Patient reports no desire to harm self or others. Onset of symptoms was February 2022. 08:52 Method Of Arrival: Ambulatory ap3 08:52 Acuity: MAMTA 3 ap3 Triage Assessment: 08:55 General: Appears uncomfortable, Behavior is calm, cooperative, appropriate for age. ap3 Pain: Complains of pain in right leg and left leg. Neuro: Level of Consciousness is awake, alert, obeys commands, Oriented to person, place, time, situation. Cardiovascular: Patient's skin is warm and dry. Respiratory: Airway is patent Respiratory effort is even, unlabored, Respiratory pattern is regular, symmetrical. Derm:. Musculoskeletal: Swelling present in right leg and left leg. Historical: - Allergies: 08:54 Codeine; ap3 - Home Meds: 08:54 clonidine HCl 0.1 mg Oral tab [Active]; levothyroxine 25 mcg cap [Active]; ap3 - PMHx: 08:54 Hypothyroidism; Hypertensive disorder; seasonal allergies; ap3 10:30 Anemia; sp4 - Immunization history:: Client reports receiving the 2nd dose of the Covid vaccine, Pneumococcal vaccine is up to date, Flu vaccine is up to date. - Social history:: Smoking status: Patient denies any tobacco usage or history of. Screenin:56 Abuse screen: Denies threats or abuse. Nutritional screening: No deficits noted. ap3 Tuberculosis screening: No symptoms or risk factors identified. 09:30 [facility] ED Fall Risk Assessment (Adult) History of falling in the last 3 months, db including since admission No falls in past 3 months (0 pts) Confusion or Disorientation No (0 pts) Intoxicated or Sedated No (0 pts) Impaired Gait No (0 pts) Mobility Assist Device Used No (0 pt) Altered Elimination No (0 pt) Score/Fall Risk Level 0 - 2 = Low Risk Oriented to surroundings, Maintained a safe environment. Assessment: 09:21 Reassessment: Patient appears in no apparent distress at this time. Patient and/or db family updated on plan of care and expected duration. Pain level reassessed. Patient is alert, oriented x 3, equal unlabored respirations, skin warm/dry/pink. PATIENT TO ULTRASOUND. 10:30 Reassessment: patient ambulatory to restroom with steady gate. complains of bilateral db lower leg pain. 12:46 Reassessment: Patient appears in no apparent distress at this time. Patient and/or db family updated on plan of care and expected duration. Pain level reassessed. Patient is alert, oriented x 3, equal unlabored respirations, skin warm/dry/pink. General: Appears in no apparent distress. comfortable, Behavior is calm, cooperative. Neuro: Level of Consciousness is awake, alert. 13:30 Reassessment: patient ambulatory to restroom. db 13:41 Reassessment: Patient appears in no apparent distress at this time. Patient and/or db family updated on plan of care and expected duration. Pain level reassessed. Patient is alert, oriented x 3, equal unlabored respirations, skin warm/dry/pink. 14:00 Reassessment: Patient and/or family updated on plan of care and expected duration. Pain db level reassessed. Patient is alert, oriented x 3, equal unlabored respirations, skin warm/dry/pink. See [facility] for continued charting and assessments. 23:41 Reassessment: Patient appears in no apparent distress at this time. report provided to kevin Syed rn, pt transported to room 217 via hospital bed with senior architect/design manager, understands room assignment change denies concerns at this time. Vital Signs: 08:52 BP 165 / 85; Pulse 114; Resp 18; Temp 98.7; Pulse Ox 100% ; Weight 49.9 kg; Height 5 ap3 ft. 4 in. (162.56 cm); 09:00 BP 167 / 107; Pulse 110; Resp 18; Pulse Ox 100% on R/A; db 10:50 BP 112 / 96; Pulse 101; Resp 18; Pulse Ox 100% on R/A; db 11:17 BP 143 / 99; Pulse 98; Resp 16; Pulse Ox 100% on R/A; db 12:00 BP 150 / 73; Pulse 76; Resp 18; Pulse Ox 100% on R/A; db 13:00 BP 143 / 83; Pulse 101; Resp 18; Pulse Ox 97% on R/A; db 08:52 Body Mass Index 18.88 (49.90 kg, 162.56 cm) ap3 ED Course: 08:44 Patient arrived in ED. am2 08:44 Gilmar Dawson MD is Private Physician. am2 08:45 Armen Quiroga MD is Attending Physician. sp4 08:54 Triage completed. ap3 08:56 Ana Bowman, RN is Primary Nurse. db 08:56 Patient has correct armband on for positive identification. Placed in gown. Bed in low ap3 position. Call light in reach. Adult w/ patient. quality assurance monitor body on. Pulse ox on. NIBP on. Door closed. Noise minimized. 08:57 Arm band placed on right wrist. ap3 09:16 Basic Metabolic Panel Sent. ss 09:16 CBC with Diff Sent. ss 09:16 LFT's Sent. ss 09:16 NT PRO-BNP Sent. ss 09:16 PT-INR Sent. ss 09:16 Troponin HS Sent. ss 09:17 D-Dimer Sent. ss 09:21 First set of blood cultures drawn by ED staff. db 09:21 Inserted saline lock: 20 gauge in left antecubital area, using aseptic technique. Blood db collected. 10:43 Extrem Venous W Compression Trupti US In Process Unspecified. EDMS 10:59 XRAY Chest (1 view) In Process Unspecified. EDMS 11:00 Second set of blood cultures drawn. db 12:38 Gilmar Dawson MD is Hospitalizing Provider. sp4 14:00 No provider procedures requiring assistance completed. Patient admitted, IV remains in db place. Administered Medications: 11:22 Drug: Lasix (furosemide) 20 mg Route: IVP; Site: left antecubital; db 12:55 Follow up: Response: No adverse reaction db 11:22 Drug: Zosyn (piperacillin-tazobactam) 3.375 grams Route: IVPB; Infused Over: 60 mins; db Site: left antecubital; 12:05 Follow up: Response: No adverse reaction; IV Status: Completed infusion; IV Intake: 50mldb 12:05 Drug: vancoMYCIN 1 grams Route: IVPB; Infused Over: 2 hrs; Site: left antecubital; db 13:45 Follow up: Response: No adverse reaction; IV Status: Completed infusion; IV Intake: db 250ml Medication: 13:00 VIS not applicable for this client. db Intake: 12:05 IV: 50ml; Total: 50ml. db 13:45 IV: 250ml; Total: 300ml. db Outcome: 12:42 Decision to Hospitalize by Provider. sp4 14:00 Admitted to ER Hold. Please see [facility] for further documentation. db 14:00 Condition: stable 14:00 Instructed on the need for admit. 23:42 Patient left the ED. aa9 Signatures: Dispatcher [employer] EDMS Karin Montero RN RN ss Moreno, Amanda am2 Linda Bishop RN RN ap3 Meka Hobson RN RN aa9 Ana Bowman RN RN db Potepalov, Sergey, MD MD sp4
--- NOTE | 2022-04-05 12:48 | EKG ---
Test Date: 2022-04-05 Test Time: 09:17:33 Prison Officer: BAILYE MEASUREMENT RESULTS: Intervals: Rate: 99 ID: [id number] QRSD: 64 QT: 328 QTc: 420 [place]: P: 71 ID: [id number] QRS: 64 T: 65 INTERPRETIVE STATEMENTS: Normal sinus rhythm Possible Left atrial enlargement Septal infarct, age undetermined Abnormal ECG Compared to ECG 05/02/2017 15:41:01 Sinus arrhythmia no longer present Myocardial infarct finding still present Electronically Signed On 04-05-22 12:47:41 [employer] by Jesus Zelaya
[2022-04-05 13:18] LABS: SARS-CoV-2 Antigen Rapid Res Negative (Negative)
[2022-04-05 14:43] VITALS: BMI 18.8
[2022-04-05] MEDS ORDERED: PIPER TAZO 3.375 GM in NA CHLORIDE 0.9% 100 ML IV SCH (17:00)
[2022-04-05] MEDS: FUROSEMIDE 40 MG TABLET PO SCH (17:21)
[2022-04-05] MEDS ORDERED: FUROSEMIDE 20 MG TABLET ONE (22:34)
[2022-04-06 04:36] LABS: Absolute Lymphocytes (CBC) 1.1 K/uL (0.7-4.9); Hematocrit 24.6 % (36.0-45.0); Lymphocytes % 23.1 % (15.3-44.8); MCV 88.9 fL (80-100); MPV 7.8 fL (7.6-11.3); RBC Red Blood Cell Count 2.76 M/uL (3.86-4.86)
[2022-04-06 04:47] LABS: Magnesium 2.3 mg/dL (1.6-2.4); Potassium 3.3 mmol/L (3.5-5.1)
[2022-04-06] MEDS ORDERED: PANTOPRAZOLE 40MG TABLET PO SCH (06:30)
--- NOTE | 2022-04-06 07:07 | HP ---
Date of Admission: 04/05/2022 Chief Complaint: Leg swelling. History Of Present Illness: This is a 72-year-old female patient came into emergency room with 1-mon th history of bilateral leg swelling. The patient also reports that she feels like she is having mor e asthma problem as she is using more of her inhaler. She denies any paroxysmal nocturnal dyspnea or orthopnea. No chest pain. Denies any black stool or blood in stool. After she came into emergency room, she was admitted to the hospital. ER physician evaluated her and contacted me, informed me th at there is concern about congestive heart failure, and the patient was diagnosed as having celluliti s of the right leg, and he gave 1 dose of vancomycin and Zosyn, and I was contacted requesting admiss ion to the hospital. When I saw her, she was in the emergency room. She denies any fever or chills. Allergies: CODEINE CAUSING NAUSEA. SCOPOLAMINE CAUSING DIZZINESS. CALCIUM CHANNEL JOSH CAUSED H ER TO HAVE SIDE EFFECT OF FEELING BAD IF SHE WAS HAVING A HEART ATTACK. Medications: On outpatient basis, she takes albuterol inhaler 2 puffs every 4 hours as needed for sh ortness of breath, clonidine 0.1 mg daily in the evening, ferrous fumarate 324 mg daily, fluticasone nasal spray 1 spray each nostril 2 times a day as needed for allergies, Advair inhaler 1 puff 2 times a day, levocetirizine 5 mg daily at bedtime, and levothyroxine 25 mcg daily. Review of Systems: Cardiovascular: As mentioned above. All other systems reviewed and negative. Respiratory: As mentioned above. All other systems reviewed and negative. Past Medical History: Significant for allergic rhinitis, hypothyroidism, asthma, hypertension, hyper lipidemia, irritable bowel syndrome, diverticulosis, and iron deficiency anemia. Past Surgical History: Cholecystectomy, hysterectomy, and cystocele repair. Family History: Father , had melanoma. Mother has coronary artery disease and stroke. Brother , had committed suicide. Sister in a motor vehicular accident. Social History: Negative for smoking and alcohol use. Physical Examination: Vital Signs: Temperature 98.8, pulse 105, respiratory rate 14, blood pressure 147/86, and oxygen sat uration 100% on room air. Height 5 feet 4 inches. Weight 110 pounds. General: Awake, alert, oriented, not in distress. HEENT: Head atraumatic, normocephalic. Conjunctivae nonerythematous. Sclerae white. Mouth, no thr ush or edema noted. Ears/Nose, no mass, lesion, discharge noted. Neck: Supple. No JVD, lymph nodes, bruit, thyromegaly noted. Lungs: Bilateral good equal air entry. Clear to auscultation. No rhonchi. No rales. Heart: Normal heart sounds, no murmur or gallop. Abdomen: Soft, bowel sounds normal. No guarding, rigidity, tenderness, mass, hepatosplenomegaly, dis tention, or bruit noted. Extremities: The patient has grade 2 edema in both legs involving lower 2/3 of both legs. Right low er leg over anterior ankle region has very small area of slightly pink discoloration of the skin, war m to touch. Skin: No rash, ulcer, cellulitis. Lymphatics: No lymph node enlargement in neck, supraclavicular, infraclavicular region. Neuro: No focal neurological deficit. Chest: Unremarkable. External Genitalia: Deferred. Rectal: Deferred. Laboratory Data: White count 5.7, hemoglobin 8.4, and platelets 409. Sodium 134, potassium 3.9, chl oride 103, bicarb 28, BUN 15, creatinine 0.54, and glucose 100. Liver function tests unremarkable. ProBNP 473. Troponin first set 5.5 and second set 7.1. EKG, normal sinus rhythm, possible left atri al enlargement, septal infarct, age undetermined. Chest x-ray, no acute cardiopulmonary changes. Ve nous Doppler of both lower extremity negative for DVT. Impression: 1.Leg edema. 2.Iron deficiency anemia, likely due to chronic GI blood loss. 3.Cellulitis, right leg. 4.Hypertension. 5.Hypothyroidism. 6.Mild intermittent asthma. 7.Hyperlipidemia. 8.Irritable bowel syndrome. Plan: We will admit the patient to hospital for further evaluation and management of this problem. The patient is appropriate for observation. We will go ahead and consult clinical scientist. Continue Las ix, which was ordered. The patient received antibiotics IV in the emergency room. Starting tomorrow , we will start her on oral antibiotics. Continue current diuretic therapy. We will repeat blood wo rk tomorrow morning and echo with Doppler will be done tomorrow morning. I instructed the patient th at she should follow up with her collection officer on an outpatient basis for this anemia problem. She had a colonoscopy done by her collection officer in May of last year and on EGD, she had some e vidence of blood in her stomach and her last hemoglobin, which was done a few months ago as an outpat ient was 12.2. We will repeat another blood work tomorrow morning and I have instructed her to start taking pantoprazole, which she was taking it for a while in the past, but has not taken it lately an d I will start it as of tomorrow morning. Details and plan of treatment discussed with the patient. YANET/EDSON Voice ID: [id number]
[2022-04-06] MEDS ORDERED: POTASSIUM CL SA 10 MEQ TAB PO ONE (07:57)
[2022-04-06] MEDS: FUROSEMIDE 40 MG TABLET PO SCH (08:34)
[2022-04-06 08:38] VITALS: BP 144/83
[2022-04-06 08:42] VITALS: TEMP 98.2
[2022-04-06 08:57] VITALS: O2SAT 92
--- NOTE | 2022-04-06 12:49 | ECHO ---
HEIGHT: 5 ft 4 in WEIGHT: 110 lb 0 oz DATE OF STUDY: 04/06/[address]: Papa Dawson MD 2-DIMENSIONAL: YES M.MODE: YES DOPPLER: YES COLOR FLOW: YES TDS: NO PORTABLE: YES DEFINITY: NO BUBBLE STUDY: NO DIAGNOSIS: CONGESTIVE HEART FAILURE CARDIAC HISTORY: CATHERIZATION: SURGERY: PROSTHETIC VALVE: PACEMAKER: MEASUREMENTS (cm) DIASTOLIC (NORMALS) SYSTOLIC (NORMALS) IVSd 0.8 (0.6-1.2) LA Diam (1.9-4.0) LVEF 64% LVIDd 4.0 (3.5-5.7) LVIDs 2.6 (2.0-3.5) %FS 34% LVPWd 0.9 (0.6-1.2) Ao Diam 3.0 (2.0-3.7) 2 DIMENSIONAL ASSESSMENT: RIGHT ATRIUM: NORMAL LEFT ATRIUM: NORMAL RIGHT VENTRICLE: NORMAL LEFT VENTRICLE: NORMAL TRICUSPID VALVE: MILD TRICUSPID REGURGITATION MITRAL VALVE: NORMAL PULMONIC VALVE: MILD TRICUSPID REGURGITATION AORTIC VALVE: NORMAL PERICARDIAL EFFUSION: NONE AORTIC ROOT: NORMAL LEFT VENTRICULAR WALL MOTION: NORMAL. DOPPLER/COLOR FLOW: MILD TRICUSPID REGURGITATION. COMMENTS: NORMAL LEFT VENTRICULAR EJECTION FRACTION 60-65% NORMAL WALL motion MODERATE DIASTOLIC DYSFUNCTION MILD TRICUSPID REGURGITATION NORMAL RIGHT VENTRICULAR SYSTOLIC LESS THAN 35mmHg. TECHNOLOGIST: PATRICIA TILLMAN
--- NOTE | 2022-04-07 09:20 | DS ---
Date of Discharge: 04/06/2022 Physical Examination: HEENT: Unremarkable. Lungs: Clear to auscultation. Heart: Sounds normal. Abdomen: Soft. Bowel sounds normal. No guarding, rigidity, tenderness, distention. Extremities: No leg edema. Laboratory Data: Today, white count 4.8, hemoglobin 8, platelets 403. Sodium 138, potassium 3.3, ch loride 106, bicarb 29, BUN 12, creatinine 0.45, glucose 92. Echocardiogram done, result pending. Discharge Medications And Instructions: 1.Continue prior home medications except do not take any aspirin or Aleve, Motrin type of medication s. 2.Follow up at my office next week. 3.Follow up with Dr. Villeda in 2 weeks. 4.Take pantoprazole 40 mg 1 tablet by mouth daily and patient has this prescription at home and she will start that. 5.Patient to continue her iron supplement that she takes at home on a daily basis and she was advise d to bring this bottle to office at the time of followup visit so I can look at the does of the iron supplement. 6.Continue all prior home medication except stop clonidine that she takes on a daily basis and patie nt to check blood pressure 3 times a day and if systolic blood pressure is more than 160, then she ma y use clonidine 0.1 mg 3 times a day as needed for systolic blood pressure more than 160. 7.Start metoprolol 25 mg. Patient to take half a tablet by mouth 2 times a day. 8.Furosemide 40 mg take 1 tablet by mouth daily. 9.Potassium chloride 20 mEq take 1 tablet by mouth daily. Hospital Course: This is a 72-year-old pleasant female patient admitted to the hospital after she ca me into emergency room with complaints of bilateral leg swelling for almost a month. Please see dict ated H and P for more information. Patient was evaluated in the ER, was admitted to the hospital. H er venous Doppler of both lower extremity done in emergency room was negative. Chest x-ray was unrem arkable for any acute changes. Patient had a small area of redness in the right lower anterior leg a nd she received a dose of vancomycin and Zosyn in emergency room. This was a very small area of cell ulitis over the right lower anterior leg. I am not sure whether this was actually all cellulitis or due to just leg swelling that she had, but in any case, there was no great clinical concern about the infection. What we were definitely concerned about was diastolic heart failure and echocardiogram w as done and after the echocardiogram was done, we decided to discharge her to go home and I will foll ow up on the results on outpatient basis and if necessary make adjustment on her medications accordin gly. Her potassium was low this morning and potassium replacement was ordered. She did receive Lasi x during this hospitalization and I have advised her to follow up with her backup administrative coordinator for ane becky problem. Her last hemoglobin about 3 months ago at office was around 12.2, so definitely she has dropped her hemoglobin in last few months. She had EGD and colonoscopy done with her gastroenterolo gist in May of last year and she will follow up with him. She has Protonix at home. She was not t aking it lately and I have advised her to restart it. Patient was discharged to go home in stable co ndition with above-mentioned medication instructions. Final Diagnoses: 1.Leg edema. 2.Hypertension. 3.Hypokalemia. 4.Anemia. YANET/MODL Voice ID: [id number] Report ID: [id number]
== END 2022-04-06 11:16 | disposition home or self-care (01) ==
LOC: ER 08:37 → ERHOLD 12:26 → 2ND 23:11
PROVIDERS: ADMIT Internal Medicine; ATTEND Internal Medicine
DX: R60.0 Localized edema (principal); D50.9 Iron deficiency anemia, unspecified; I10 Essential (primary) hypertension; E87.6 Hypokalemia; D62 Acute posthemorrhagic anemia; K92.2 Gastrointestinal hemorrhage, unspecified; L03.115 Cellulitis of right lower limb; J45.20 Mild intermittent asthma, uncomplicated; E78.5 Hyperlipidemia, unspecified; K58.9 Irritable bowel syndrome, unspecified; Z20.822 Contact with and (suspected) exposure to COVID-19
CPT/HCPCS: 96365; 96367; 93005; 93306; 87040 ×2; 85025 ×2; 80048 ×2; 36415; 83735; 85610; 85379; 80076; 84484 ×2; 83880; 71045; 93970; 96375; 99285; 87811; J1940; J2543; J3370; J7050; G0378